=== PATIENT | female | born 1985 | race Caucasian/White ===

== ENCOUNTER 2018-04-01 21:34 | Inpatient (IN) | payer OTHER ==
[~2018-04-01] VITALS: Ht 165.1 cm; Wt 79.5 kg
[2018-04-01] MEDS ORDERED: D5%-LACTATED RINGERS 1,000 ML IV SCH (21:56)
[2018-04-01] MEDS ORDERED: OXYTOCIN 30U/ 0.9% NaCL 500ML 500 ML IV ONE (21:56)
[2018-04-01] MEDS ORDERED: OXYTOCIN 30U/ 0.9% NaCL 500ML 500 ML IV PRN (21:56)
[2018-04-01] MEDS ORDERED: PENICILLIN GK 5,000,000 UNITS in DEXTROSE 5% 100 ML IVPB ONE (22:00)
[2018-04-01] MEDS ORDERED: METOCLOPRAMIDE 5 MG/ML, 2ML IVPush PRN (22:00)
[2018-04-01] MEDS ORDERED: CALCIUM CARBONATE 500 MG TAB.CHEW PO PRN (22:00)
[2018-04-01] MEDS ORDERED: ONDANSETRON 2MG/ML, 2ML IVPush PRN (22:00)
[2018-04-01] MEDS ORDERED: SODIUM CITRATE/CITRIC ACID 30 ML UDC PO PRN (22:00)
[2018-04-01] MEDS ORDERED: FENTANYL PF 100 MCG/2ML IVPush PRN (22:00)
[2018-04-01] MEDS ORDERED: FENTANYL PF 100 MCG/2ML IV PRN (22:00)
[2018-04-01] MEDS ORDERED: TERBUTALINE 1 MG/ML, 1ML IVPush PRN (22:00)
[2018-04-01] MEDS ORDERED: OXYTOCIN 30U/ 0.9% NaCL 500ML 500 ML ONE (22:08)
[2018-04-01] MEDS ORDERED: MISOPROSTOL 200 MCG TABLET ONE (22:08)
[2018-04-01] MEDS ORDERED: LIDOCAINE 1%, 20ML ONE (22:08)
[2018-04-01] MEDS ORDERED: NEWBORN KIT ONE (22:08)
[2018-04-01 22:17] LABS: BASOPHILS # (AUTO) 0.01 x10^3/uL (0-0.1); BASOPHILS % (AUTO) 0 % (0-1); EOSINOPHILS # (AUTO) 0.08 x10^3/uL (0-0.4); EOSINOPHILS % (AUTO) 1 % (1-7); LYMPHOCYTES # (AUTO) 1.29 x10^3/uL (1-3.4); LYMPHOCYTES % (AUTO) 18 % (22-44); MD NO; MEAN CORPUSCULAR HEMOGLOBIN 30.5 pg (27.0-34.8); MEAN CORPUSCULAR VOLUME 89.7 fL (80-100); MEAN PLATELET VOLUME 8.7 fL (7.4-10.4); MONOCYTES # (AUTO) 0.54 x10^3/uL (0.2-0.8); MONOCYTES % (AUTO) 8 % (2-9); NEUTROPHILS # (AUTO) 5.23 x10^3/uL (1.8-6.8); NEUTROPHILS % (AUTO) 73 % (42-75); PLATELET COUNT 190 x10^3/uL (130-400); RED BLOOD COUNT 4.29 x10^6/uL (3.82-5.3); RED CELL DISTRIBUTION WIDTH 14.1 % (9.6-15.2)
[2018-04-01] MEDS: LACTATED RINGERS 1,000 ML IV SCH (22:24)
[2018-04-01] MEDS ORDERED: FENTANYL/BUPIV./NS/PF 250 ML EPIDCONT SCH (23:07)
[2018-04-02] MEDS: LACTATED RINGERS 1,000 ML IV SCH ×4 (01:51→22:05)
[2018-04-02] MEDS ORDERED: FENTANYL/BUPIV./NS/PF 250 ML EPIDCONT SCH (02:29)
[2018-04-02] MEDS ORDERED: LACTATED RINGERS 1,000 ML IVBOLUS PRN (02:30)
[2018-04-02] MEDS ORDERED: EPHEDRINE 50 MG/ML, 1ML IVPush PRN (02:30)
[2018-04-02] MEDS ORDERED: NALOXONE 0.4 MG/ML, 1ML IVPush PRN (02:30)
[2018-04-02] MEDS: PENICILLIN GK 2,500,000 UNITS in DEXTROSE 5% 100 ML IVPB SCH ×3 (02:34→10:40)
[2018-04-02] MEDS ORDERED: ONDANSETRON 2MG/ML, 2ML ONE (08:18)
[2018-04-02] MEDS ORDERED: BUPIVACAINE 0.25% ONE (09:49)
[2018-04-02] MEDS ORDERED: RHOGAM FROM BLOOD BANK 1 NOTE EA IM/IV ONE (12:30)
[2018-04-02] MEDS ORDERED: MEASLES,MUMPS&RUBELLA VACC/PF 0.5 ML SQ PRN (12:30)
[2018-04-02] MEDS ORDERED: MISOPROSTOL 200 MCG TABLET PR PRN (12:30)
[2018-04-02] MEDS ORDERED: ACETAMINOPHEN 325 MG TABLET PO PRN (12:30)
[2018-04-02] MEDS ORDERED: METHYLERGONOVINE 0.2 MG/ML IM PRN (12:30)
[2018-04-02] MEDS ORDERED: OXYcodone/APAP 5/325MG TABLET PO PRN ×2 (12:30)
[2018-04-02] MEDS ORDERED: CARBOPROST TROMETHAMINE 250 MCG/ML, 1ML IM PRN (12:30)
[2018-04-02] MEDS ORDERED: DIPH,PERTUSS(ACELL),TET VAC/PF NC IM-VACC PRN (12:30)
[2018-04-02] MEDS ORDERED: IBUPROFEN 600 MG TABLET ONE (12:39)
[2018-04-02] MEDS: IBUPROFEN 600 MG TABLET PO PRN ×2 (12:40→19:13)
[2018-04-02] MEDS ORDERED: OXYTOCIN 30U/ 0.9% NaCL 500ML 500 ML ONE (14:56)
[2018-04-02] MEDS: OXYTOCIN 30U/ 0.9% NaCL 500ML 500 ML IV SCH ×2 (15:01→22:30)
[2018-04-02 19:20] VITALS: BP 133/81
[2018-04-02 20:41] LABS: BASOPHILS # (AUTO) 0.03 x10^3/uL (0-0.1); BASOPHILS % (AUTO) 0 % (0-1); EOSINOPHILS # (AUTO) 0.03 x10^3/uL (0-0.4); EOSINOPHILS % (AUTO) 0 % (1-7); LYMPHOCYTES # (AUTO) 1.23 x10^3/uL (1-3.4); LYMPHOCYTES % (AUTO) 8 % (22-44); MD NO; MEAN CORPUSCULAR HEMOGLOBIN 30.5 pg (27.0-34.8); MEAN CORPUSCULAR HGB CONC 33.7 g/dL (32.4-35.8); MEAN CORPUSCULAR VOLUME 90.5 fL (80-100); MEAN PLATELET VOLUME 8.7 fL (7.4-10.4); MONOCYTES % (AUTO) 5 % (2-9); NEUTROPHILS # (AUTO) 13.42 x10^3/uL (1.8-6.8); NEUTROPHILS % (AUTO) 87 % (42-75); PLATELET COUNT 200 x10^3/uL (130-400); RED BLOOD COUNT 4.01 x10^6/uL (3.82-5.3); RED CELL DISTRIBUTION WIDTH 13.9 % (9.6-15.2)
[2018-04-03 00:45] VITALS: BP 115/72
[2018-04-03] MEDS: LACTATED RINGERS 1,000 ML IV SCH ×3 (02:29→18:29)
[2018-04-03 04:30] VITALS: BP 114/74
[2018-04-03] MEDS: IBUPROFEN 600 MG TABLET PO PRN ×3 (04:39→18:22)
[2018-04-03 06:40] VITALS: BP 145/75
[2018-04-03] MEDS: OXYTOCIN 30U/ 0.9% NaCL 500ML 500 ML IV SCH ×2 (08:30→18:30)
[2018-04-03 09:17] VITALS: BP 120/77
[2018-04-03] MEDS: PRENATAL VIT/IRON/FA 1 EACH TABLET PO SCH (10:14)
[2018-04-03] MEDS: DOCUSATE 100 MG CAPSULE PO PRN (10:14)
[2018-04-03 20:15] VITALS: BP 118/72
[2018-04-04] MEDS: LACTATED RINGERS 1,000 ML IV SCH (02:29)
[2018-04-04] MEDS: OXYTOCIN 30U/ 0.9% NaCL 500ML 500 ML IV SCH (04:30)
[2018-04-04] MEDS: DOCUSATE 100 MG CAPSULE PO PRN (08:15)
[2018-04-04] MEDS: PRENATAL VIT/IRON/FA 1 EACH TABLET PO SCH (08:15)
[2018-04-04 09:45] VITALS: BP 132/82
== END 2018-04-04 11:32 | disposition home or self-care (01) | DRG 807 ==
LOC: LDOP 21:34 → LDIP 22:03 → 2NW 04-02 15:15
PROVIDERS: ADMIT Obstetrics & Gynecology Maternal & Fetal Medicine; ATTEND Obstetrics & Gynecology Maternal & Fetal Medicine
PROC: 10E0XZZ Delivery of Products of Conception, External Approach (ICD-10-PCS; principal; 2018-04-02)
PROC: 3E0R3BZ Introduction of Anesthetic Agent into Spinal Canal, Percutaneous Approach (ICD-10-PCS; 2018-04-02)
PROC: 00HU33Z Insertion of Infusion Device into Spinal Canal, Percutaneous Approach (ICD-10-PCS; 2018-04-02)
DX: O69.81X0 Labor and delivery complicated by cord around neck, without compression, not applicable or unspecified (principal); Z37.0 Single live birth; Z3A.40 40 weeks gestation of pregnancy
CPT/HCPCS: 36415; 99285; J7121; 85025; 86850; 86900; G0378; J2405; J2540; J2590; J3010; J7120

== ENCOUNTER 2019-02-16 18:57 | Emergency (ER) | payer OTHER ==
[~2019-02-16] VITALS: Ht 167.6 cm; Wt 68.4 kg
--- NOTE | 2019-02-16 19:23 | NUR ---
PT TO ED FOR GENERALIZED ABD PAIN AND N/V X2 WEEKS. PT STATES WAS SEEN AT [facility] TWICE FOR SAME AND ALL TESTS WERE NEGATIVE. PT STATES UNABLE TO GET IN WITH PCP/GI UNTIL February. PT CONNECTED TO MONITORS. BALDO QUINN, TO BS FOR ASSESSMENT. AWAITING ORDERS. PT BECAME VERBALLY AGGRESSIVE WITH THIS RN DURING ASSESSMENT. PT REFUSING TO TALK ANY LOUDER THAN A WHISPER. WHEN ASKED WHY SHE COULDN'T TALK AND HOW THAT RELATED TO HER ABD PAIN, PT REPLIED, "I DON'T FUCKING KNOW!" PT EDUCATED THAT VERBAL AGGRESSION WILL NOT BE TOLERATED.
[2019-02-16] MEDS ORDERED: ONDANSETRON 2MG/ML, 2ML ONE (19:56)
--- NOTE | 2019-02-16 19:59 | NUR ---
PT RESTING IN ROOM WITH FAMILY AT BS. VSS. PIV ESTABLISHED AND IVF STARTED. PT MEDICATED PER MAR. PT STATES 3/10 PAIN. NO MORPHINE ADMINISTERED AT THIS TIME. AWAITING CT.
[2019-02-16] MEDS ORDERED: MORPHINE SULFATE 4 MG/ML, 1ML IVPush PRN (20:00)
[2019-02-16] MEDS ORDERED: SODIUM CHLORIDE 0.9% 1,000ML IVBOLUS ONE (20:00)
[2019-02-16] MEDS ORDERED: SODIUM CHLORIDE FLUSH 10ML SYR IVF ONE (20:00)
[2019-02-16] MEDS ORDERED: ONDANSETRON 2MG/ML, 2ML IVPush ONE (20:00)
[2019-02-16 20:04] LABS: BASOPHILS # (AUTO) 0.02 x10^3/uL (0-0.1); BASOPHILS % (AUTO) 0 % (0-1); EOSINOPHILS % (AUTO) 0 % (1-7); LYMPHOCYTES # (AUTO) 1.33 x10^3/uL (1-3.4); LYMPHOCYTES % (AUTO) 17 % (22-44); MD NO; MEAN CORPUSCULAR HEMOGLOBIN 30.1 pg (27.0-34.8); MEAN CORPUSCULAR HGB CONC 32.7 g/dL (32.4-35.8); MEAN CORPUSCULAR VOLUME 92.1 fL (80-100); MEAN PLATELET VOLUME 8.2 fL (7.4-10.4); MONOCYTES # (AUTO) 0.32 x10^3/uL (0.2-0.8); MONOCYTES % (AUTO) 4 % (2-9); NEUTROPHILS # (AUTO) 5.99 x10^3/uL (1.8-6.8); NEUTROPHILS % (AUTO) 78 % (42-75); PLATELET COUNT 312 x10^3/uL (130-400); RED BLOOD COUNT 5.12 x10^6/uL (3.82-5.3); RED CELL DISTRIBUTION WIDTH 13.4 % (9.6-15.2)
[2019-02-16 20:08] LABS: MICROSCOPIC AUTO
[2019-02-16 20:12] LABS: CULTURE INDICATED? YES
[2019-02-16 20:14] LABS: ANION GAP 7 mmol/L (5-15); CALCIUM 9.1 mg/dL (8.5-10.1); CHLORIDE 102 mmol/L (98-107)
[2019-02-16 20:19] LABS: ALANINE AMINOTRANSFERASE 27 U/L (12-78); ALKALINE PHOSPHATASE 39 U/L (45-117); BILIRUBIN,TOTAL 0.5 mg/dL (0.2-1.0); CREATININE 0.84 mg/dL (0.55-1.02); TOTAL PROTEIN 7.1 g/dL (6.4-8.2)
--- NOTE | 2019-02-16 20:28 | NUR ---
PT TO CT.
--- NOTE | 2019-02-16 20:39 | NUR ---
PT BACK FROM CT. VSS. NO NEEDS EXPRESSED.
[2019-02-16] MEDS ORDERED: OMNIPAQUE 350 MG/ML, 100ML BOTTLE ONE (20:41)
[2019-02-16 21:04] VITALS: BP 112/64
--- NOTE | 2019-02-16 21:10 | NUR ---
pt resting in room. vss. no needs expressed. call light within reach. all results back at this time. chart up for recheck.
--- NOTE | 2019-02-16 21:34 | NUR ---
dr. mortensen to bs to update on results and poc. plan to dc.
--- NOTE | 2019-02-16 21:38 | NUR ---
per verbal order from ANI Hopkins, disregard tordol and norco orders. orders placed by mistake.
[2019-02-16] MEDS ORDERED: HYDROcodone/APAP 10/325 MG TABLET PO ONE (22:00)
[2019-02-16] MEDS ORDERED: KETOROLAC 30 MG/1 ML IVPush ONE (22:00)
== END 2019-02-16 21:46 | disposition home or self-care (01) ==
LOC: ED 19:15
DX: R11.2 Nausea with vomiting, unspecified (principal); R19.7 Diarrhea, unspecified; R10.9 Unspecified abdominal pain
CPT/HCPCS: 36415; 74177; 80053; 81001; 83690; 84703; 85025; 87086; 96361; 96374; 99284; J2405; J7030; Q9967

== ENCOUNTER 2019-06-24 14:54 | Emergency (ER) | payer OTHER ==
[~2019-06-24] VITALS: Ht 165.1 cm; Wt 72.1 kg
[2019-06-24 17:39] LABS: ALBUMIN 4.5 g/dL (3.4-5.0); ANION GAP 12 mmol/L (5-15); CALCIUM 9.4 mg/dL (8.5-10.1); CHLORIDE 104 mmol/L (98-107)
[2019-06-24 17:44] LABS: ALANINE AMINOTRANSFERASE 25 U/L (12-78); ALKALINE PHOSPHATASE 46 U/L (45-117); BILIRUBIN,TOTAL 0.5 mg/dL (0.2-1.0); CREATININE 0.86 mg/dL (0.55-1.02); TOTAL PROTEIN 7.9 g/dL (6.4-8.2)
--- NOTE | 2019-06-24 17:48 | NUR ---
PT TO ROOM AT THIS TIME, CONNECTED TO MONITORING. VS, RESP EVEN AND UNLABORED, NADN. PT RESTING ON [employer] W/ CALL LIGHT IN REACH. DENIES FURTHER NEEDS AT THIS TIME.
--- NOTE | 2019-06-24 17:49 | NUR ---
THIS IS A 34 YO F W/ C/O ABD PAIN IN ALL QUADRANTS THAT STARTED TODAY. PT REPORTS EMESIS THAT IS NOW BLACK AND DIARRHEA. PT DENIES MEDICAL HX. RESP EVEN AND UNLABORED, VSS. AWAITING TESTS RESULTS.
--- NOTE | 2019-06-24 17:59 | NUR ---
URINE COLLECTED AND SENT TO LAB.
[2019-06-24 18:08] LABS: BASOPHILS # (AUTO) 0.01 x10^3/uL (0-0.1); BASOPHILS % (AUTO) 0 % (0-1); EOSINOPHILS % (AUTO) 0 % (1-7); LYMPHOCYTES # (AUTO) 0.76 x10^3/uL (1-3.4); LYMPHOCYTES % (AUTO) 9 % (22-44); MD NO; MEAN CORPUSCULAR HGB CONC 33.4 g/dL (32.4-35.8); MEAN CORPUSCULAR VOLUME 89.8 fL (80-100); MEAN PLATELET VOLUME 8.5 fL (7.4-10.4); MONOCYTES # (AUTO) 0.16 x10^3/uL (0.2-0.8); MONOCYTES % (AUTO) 2 % (2-9); NEUTROPHILS # (AUTO) 7.77 x10^3/uL (1.8-6.8); NEUTROPHILS % (AUTO) 89 % (42-75); PLATELET COUNT 282 x10^3/uL (130-400); RED CELL DISTRIBUTION WIDTH 13.6 % (9.6-15.2)
[2019-06-24 18:09] LABS: MICROSCOPIC INDICATED
--- NOTE | 2019-06-24 18:13 | NUR ---
ALL TESTS RESULTED. PT IS UP FOR RECHECK AT THIS TIME.
[2019-06-24 18:24] LABS: CULTURE INDICATED? YES
--- NOTE | 2019-06-24 18:53 | NUR ---
Report received from NEO Mendiola. This RN to assume care. Patient up for recheck.
[2019-06-24] MEDS ORDERED: ONDANSETRON 2MG/ML, 2ML ONE (19:47)
[2019-06-24] MEDS ORDERED: MAALOX/HYOSCYAMINE/LIDOCAINE 45 ML BTL ONE (19:48)
[2019-06-24 20:00] VITALS: BP 107/60
[2019-06-24] MEDS ORDERED: ONDANSETRON 2MG/ML, 2ML IVPush ONE (20:00)
[2019-06-24] MEDS ORDERED: SODIUM CHLORIDE 0.9% 1,000ML IVBOLUS ONE (20:00)
[2019-06-24] MEDS ORDERED: MAALOX/HYOSCYAMINE/LIDOCAINE 45 ML BTL PO ONE (20:00)
[2019-06-24 21:36] LABS: HCG UR SG 1.019 (1.003-1.030)
--- NOTE | 2019-06-24 21:38 | NUR ---
Discharge instructions given. All questions and concerns addressed. Patient ambulatory with a steady gait. Belongings with patient.
== END 2019-06-24 21:39 | disposition home or self-care (01) ==
LOC: ED 17:40
DX: R10.13 Epigastric pain (principal); R10.84 Generalized abdominal pain; R19.7 Diarrhea, unspecified; R11.2 Nausea with vomiting, unspecified; I44.5 Left posterior fascicular block
CPT/HCPCS: 36415; 80053; 81001; 81025; 83036; 83690; 84703; 85025; 87086; 93005; 96374; 99285; J2405; J7030